=== PATIENT | female | born 1955 | race Caucasian/White ===

== ENCOUNTER → 2016-03-31 | Day surgery (SDC) | payer OTHER ==
[2016-03-23 11:14] VITALS: Ht 154.9 cm; Wt 56.8 kg
[~2016-03-31] VITALS: Ht 154.9 cm; Wt 56.8 kg
[~2016-03-31] MED LIST: CALC600T PO; CHOL20007 PO; FERR325T5 PO; LEVE500T13 PO; LIDOCAINE HCL 2% 2 ML VIAL (20MG/ML) ONE; MULT-506 PO; MYCO1TAB PO; PRLSR20 PO; PROPOFOL IV EMULSION 10 MG/ML 20 ML VIAL IV ONE; SODI650T8 PO; SULF1TAB92 PO; TACR1CAP5 PO; TACR5CAP PO; WARF10TA4 PO; WARF1TAB6 PO
--- NOTE | 2016-03-31 14:48 | Endo History and Physical ---
History & Physical Date of Service: Mar 31, 2016. Chief Complaint: cirrhosis Referring Physician: Dr. Kal francisco History of Present Illness For EGD Past Medical History Liver Disease Past Surgical History Hx Cardiac Surgery: No Hx Internal Defibrillator: No Hx Pacemaker: No Hx Abdominal Surgery: Yes (LIVER TRANSPLANT, APPY, ) Hx of Implantable Prosthesis: No Hx Post-Op Nausea and Vomiting: No Hx Cancer Surgery: No Hx Thoracic Surgery: No Hx Orthopedic: No Hx Urinary Tract Surgery: No Family History None Social History Smoking Status: Never Smoker Hx Substance Use: No Hx Alcohol Use: No Allergies Coded Allergies: Aspirin (Verified Allergy, Severe, to liver, 03/31/16) Current Medications Reported Home Medications Medications Dose Route/Sig Max Daily Dose Days Date Category Mycophenolic Acid Dr (Mycophenolate Sodium) 180 Mg Tab 1 Tab PO BID 03/23/16 Reported Prograf (Tacrolimus) 5 Mg Cap 5 Mg PO BID 03/23/16 Reported Prograf (Tacrolimus) 1 Mg Cap 1 Mg PO BID 03/23/16 Reported Sodium Bicarbonate 650 Mg Tab 1 Tab PO HS 03/23/16 Reported Ferrous Sulfate 325 Mg Tab 1 Tab PO BID 03/23/16 Reported Vitamin D3 (Cholecalciferol) 2,000 Unit Tab 2 Tab PO DAILY AFTERNOON 90 03/23/16 Reported Calcium 600 (Calcium Carbonate) 600 Mg Tab 1 Tab PO QAM 03/23/16 Reported Jantoven (Warfarin Sodium) 10 Mg Tab 10 Mg PO HS 03/23/16 Reported Jantoven (Warfarin Sodium) 1 Mg Tab 1 Mg PO HS 03/23/16 Reported Multivitamin (Multivitamins) Tab 1 Tab PO QAM 03/23/16 Reported Prilosec (Omeprazole) 20 Mg Capcr 20 Mg PO QAM 03/23/16 Reported Keppra (Levetiracetam) 500 Mg Tab 500 Mg PO BID 03/23/16 Reported Vital Signs Weight (Kilograms): 56.82 Height (Feet): 5 Height (Inches): 1 Date Time Temp Pulse Resp B/P Pulse Ox O2 Delivery O2 Flow Rate FiO2 03/31/16 14:16 36.6 65 18 120/76 99 Room Air Physical Exam General Appearance: WD/WN Respiratory/Chest: Respiratory effort: no dyspnea Cardiovascular: Heart Auscultation: RRR Abdomen: Bowel Sounds: pertinent finding (Large scar) Inspection & Palpation: soft Assessment and Plan Cirrhosis s/p transplant for EGD
--- NOTE | 2016-03-31 15:03 | Discharge Instructions ---
Endoscopy Patient Instructions Date / Procedure(s) Performed Mar 31, 2016. EGD Allergy Information Coded Allergies: Aspirin (Verified Allergy, Severe, to liver, 03/31/16) Discharge Date / Findings Mar 31, 2016. Normal EGD Medication Instructions Stopped Medication(s): continued to take Coumadin,last dose last night 2100 Restart Stopped Medication(s): resume meds Reported Home Medications Medications Dose Route/Sig Max Daily Dose Days Date Category Mycophenolic Acid Dr (Mycophenolate Sodium) 180 Mg Tab 1 Tab PO BID 03/23/16 Reported Prograf (Tacrolimus) 5 Mg Cap 5 Mg PO BID 03/23/16 Reported Prograf (Tacrolimus) 1 Mg Cap 1 Mg PO BID 03/23/16 Reported Sodium Bicarbonate 650 Mg Tab 1 Tab PO HS 03/23/16 Reported Ferrous Sulfate 325 Mg Tab 1 Tab PO BID 03/23/16 Reported Vitamin D3 (Cholecalciferol) 2,000 Unit Tab 2 Tab PO DAILY AFTERNOON 90 03/23/16 Reported Calcium 600 (Calcium Carbonate) 600 Mg Tab 1 Tab PO QAM 03/23/16 Reported Jantoven (Warfarin Sodium) 10 Mg Tab 10 Mg PO HS 03/23/16 Reported Jantoven (Warfarin Sodium) 1 Mg Tab 1 Mg PO HS 03/23/16 Reported Multivitamin (Multivitamins) Tab 1 Tab PO QAM 03/23/16 Reported Prilosec (Omeprazole) 20 Mg Capcr 20 Mg PO QAM 03/23/16 Reported Keppra (Levetiracetam) 500 Mg Tab 500 Mg PO BID 03/23/16 Reported Provider Instructions Activity Restrictions - No exercising or heavy lifting for 24 hours. - Do not drink alcohol the day of the procedure. - Do not drive a car or operate machinery until the day after the procedure. - Do not make any important decisions or sign important papers in 24 hours after the procedure. Following Day: - Return to full activity which may include returning to work/school. Diet Start your diet with liquids and light foods (jello, soup, juice, toast). Then eat your usual diet if not nauseated. Treatment For Common After Affects For mild abdominal pain, bloating, or excessive gas: - Rest - Eat lightly - Lie on right side Follow-Up Information Follow-up with Dr. Kal francisco as scheduled Anesthesia Information What You Should Know You have had a procedure that required some medicine to reduce anxiety and discomfort. This treatment is called moderate sedation. After receiving the treatment, you may be sleepy, but you will be able to breathe on your own. The effects of the treatment may last for several hours. Follow these instructions along with Activity/Diet recommendations noted above: * Do NOT do anything where dizziness or clumsiness would be dangerous. * Rest quietly at home today, then you can be up and about tomorrow. * Have a responsible person stay with you the rest of today. * You may have had an I.V. today. If so, you may take the dressing off later today. Recommendations Call your doctor if: * Trouble breathing * Continuous vomiting for more than 24 hours * Temperature above 101 degrees * Severe abdominal pain or bloating * Pain not relieved by pain medicine ordered * There is increased drainage or redness from any incision * A large amount of rectal bleeding greater than 2-3 tablespoons. (If you had a polyp/s removed or have hemorrhoids, a small amount of blood - from the rectum is to be expected.) * You have any unanswered questions or concerns. IN THE EVENT OF A SERIOUS EMERGENCY, GO TO THE NEAREST EMERGENCY ROOM Your discharge instructions were prepared by provider Beka Lo. Patient Instructions Signature Page Sulma Redd Patient (or Guardian) Signature/Date: I have read and understand the instructions given to me by my caregivers. Caregiver/RN/Doctor Signature/Date: The above-named patient and/or guardian has received patient instructions on this date. + Original Patient Signature Page (only) stays with chart. Please make copy for patient.
--- NOTE | 2016-03-31 15:07 | GI REPORT ---
Procedure Date: 03/31/2016 2:48 PM Procedure: Upper GI endoscopy Indications: Epigastric abdominal pain, Cirrhosis Medicines: Propofol total dose 130 mg IV, Lidocaine 40 mg IV Complications: No immediate complications. Estimated Blood Loss: Estimated blood loss: none. Procedure: Pre-Anesthesia Assessment: - Prior to the procedure, a History and Physical was performed, and patient medications, allergies and sensitivities were reviewed. The patient's tolerance of previous anesthesia was reviewed. - The risks and benefits of the procedure and the sedation options and risks were discussed with the patient. All questions were answered and informed consent was obtained. After obtaining informed consent, the endoscope was passed under direct vision. Throughout the procedure, the patient's blood pressure, pulse, and oxygen saturations were monitored continuously. The scope was introduced through the mouth, and advanced to the second part of duodenum. The upper GI endoscopy was accomplished without difficulty. The patient tolerated the procedure well. Findings: The examined esophagus was normal. The entire examined stomach was normal. The examined duodenum was normal. Impression: - Normal esophagus. - Normal stomach. - Normal examined duodenum. - No specimens collected. Recommendation: - Discharge patient to home (ambulatory). - Continue present medications. - Return to referring physician as previously scheduled. Beka Lo M.D. Beka oL MD 03/31/2016 3:07:05 PM This report has been signed electronically. Note Initiated On: 03/31/2016 2:48 PM I attest to the content of the Intraoperative Record and orders documented therein, exceptions below
--- NOTE | 2016-03-31 15:30 | Anesthesiology Progress Note ---
Anesthesia Post Op Note Date & Time Mar 31, 2016 at 15:30 Vital Signs Pain Intensity: 0 Vital Signs Past 12 Hours Date Time Temp Pulse Resp B/P Pulse Ox O2 Delivery O2 Flow Rate FiO2 03/31/16 15:25 64 20 118/75 100 Room Air 03/31/16 15:10 65 20 99/57 100 Mask 10 03/31/16 14:16 36.6 65 18 120/76 99 Room Air Notes Mental Status: alert / awake / arousable, participated in evaluation Pt Amnestic to Procedure: Yes Nausea / Vomiting: adequately controlled Pain: adequately controlled Airway Patency, RR, SpO2: stable & adequate BP & HR: stable & adequate Hydration State: stable & adequate Anesthetic Complications: no major complications apparent Pt doing well.
[2016-03-31 15:40] VITALS: BP 131/77; PULSE 57; O2SAT 100
== END | disposition home or self-care (01) ==
LOC: C.GI 12:15
PROVIDERS: ATTEND Internal Medicine Gastroenterology
DX: K74.60 Unspecified cirrhosis of liver (principal); Z94.4 Liver transplant status; Z90.49 Acquired absence of other specified parts of digestive tract; Z79.01 Long term (current) use of anticoagulants

== ENCOUNTER → 2016-05-23 | Outpatient (CLI) | payer OTHER ==
[~2016-05-23] MED LIST changes: -LIDOCAINE HCL 2% 2 ML VIAL (20MG/ML) ONE; -PROPOFOL IV EMULSION 10 MG/ML 20 ML VIAL IV ONE; -SULF1TAB92 PO
== END | disposition home or self-care (01) ==
LOC: C.MAMM 09:05
PROVIDERS: ATTEND Internal Medicine Geriatric Medicine
DX: Z00.00 Encounter for general adult medical examination without abnormal findings (principal); M81.0 Age-related osteoporosis without current pathological fracture

== ENCOUNTER → 2016-05-30 | Outpatient (CLI) | payer OTHER ==
[2016-05-30 13:23] LABS: INR 2.1 (0.9-1.1); PROTHROMBIN TIME (PATIENT) 23.6 SECONDS (9.0-12.0)
== END | disposition home or self-care (01) ==
LOC: C.LAB 12:01
PROVIDERS: ATTEND Internal Medicine Gastroenterology
DX: Z01.812 Encounter for preprocedural laboratory examination (principal)

== ENCOUNTER → 2016-06-02 | Day surgery (SDC) | payer OTHER ==
[2016-05-11 13:11] VITALS: Ht 154.9 cm; Wt 56.8 kg
[~2016-06-02] VITALS: Ht 154.9 cm; Wt 56.8 kg
[~2016-06-02] MED LIST changes: +LIDOCAINE HCL 2% 2 ML VIAL (20MG/ML) ONE; +MIDAZOLAM HCL 1 MG/ML 2ML VIAL ONE; +ONDANSETRON INJ 2 MG/ML 2 ML VIAL ONE; +PROPOFOL IV EMULSION 10 MG/ML 20 ML VIAL IV ONE
--- NOTE | 2016-06-02 13:27 | Endo History and Physical ---
History & Physical Date of Service: Jun 02, 2016. Chief Complaint: screening Referring Physician: Dr. Radha Ventura History of Present Illness For colonoscopy Past Medical History Liver Disease Past Surgical History Hx Cardiac Surgery: No Hx Internal Defibrillator: No Hx Pacemaker: No Hx Abdominal Surgery: Yes (LIVER TRANSPLANT, APPY, ) Hx of Implantable Prosthesis: No Hx Post-Op Nausea and Vomiting: No Hx Cancer Surgery: No Hx Thoracic Surgery: No Hx Orthopedic: No Hx Urinary Tract Surgery: No Family History None Social History Smoking Status: Never Smoker Hx Substance Use: No Hx Alcohol Use: No Allergies Coded Allergies: Aspirin (Verified Allergy, Severe, TOLD TO AVOID D/T LIVER DISEASE, ) Current Medications Reported Home Medications Medications Dose Route/Sig Max Daily Dose Days Date Category Mycophenolic Acid Dr (Mycophenolate Sodium) 180 Mg Tab 1 Tab PO BID 03/23/16 Reported Prograf (Tacrolimus) 5 Mg Cap 5 Mg PO BID 03/23/16 Reported Prograf (Tacrolimus) 1 Mg Cap 1 Mg PO BID 03/23/16 Reported Sodium Bicarbonate 650 Mg Tab 1 Tab PO HS 03/23/16 Reported Ferrous Sulfate 325 Mg Tab 1 Tab PO BID 03/23/16 Reported Vitamin D3 (Cholecalciferol) 2,000 Unit Tab 2 Tab PO DAILY AFTERNOON 90 03/23/16 Reported Calcium 600 (Calcium Carbonate) 600 Mg Tab 1 Tab PO QAM 03/23/16 Reported Jantoven (Warfarin Sodium) 10 Mg Tab 10 Mg PO HS 03/23/16 Reported Jantoven (Warfarin Sodium) 1 Mg Tab 1 Mg PO HS 03/23/16 Reported Multivitamin (Multivitamins) Tab 1 Tab PO QAM 03/23/16 Reported Prilosec (Omeprazole) 20 Mg Capcr 20 Mg PO QAM 03/23/16 Reported Keppra (Levetiracetam) 500 Mg Tab 500 Mg PO BID 03/23/16 Reported Vital Signs Weight (Kilograms): 56.82 Height (Feet): 5 Height (Inches): 1 Physical Exam General Appearance: WD/WN Respiratory/Chest: Respiratory effort: no dyspnea Cardiovascular: Heart Auscultation: RRR Abdomen: Bowel Sounds: pertinent finding (scars) Assessment and Plan for screening colonoscopy
[2016-06-02 13:41] VITALS: TEMP 36.6
--- NOTE | 2016-06-02 14:10 | Discharge Instructions ---
Endoscopy Patient Instructions Date / Procedure(s) Performed Jun 02, 2016. Colonoscopy Allergy Information Coded Allergies: Aspirin (Verified Allergy, Severe, TOLD TO AVOID D/T LIVER DISEASE, ) Discharge Date / Findings Jun 02, 2016. Normal colon Medication Instructions Restart Stopped Medication(s): resume meds Reported Home Medications Medications Dose Route/Sig Max Daily Dose Days Date Category Mycophenolic Acid Dr (Mycophenolate Sodium) 180 Mg Tab 1 Tab PO BID 03/23/16 Reported Prograf (Tacrolimus) 5 Mg Cap 5 Mg PO BID 03/23/16 Reported Prograf (Tacrolimus) 1 Mg Cap 1 Mg PO BID 03/23/16 Reported Sodium Bicarbonate 650 Mg Tab 1 Tab PO HS 03/23/16 Reported Ferrous Sulfate 325 Mg Tab 1 Tab PO BID 03/23/16 Reported Vitamin D3 (Cholecalciferol) 2,000 Unit Tab 2 Tab PO DAILY AFTERNOON 90 03/23/16 Reported Calcium 600 (Calcium Carbonate) 600 Mg Tab 1 Tab PO QAM 03/23/16 Reported Jantoven (Warfarin Sodium) 10 Mg Tab 10 Mg PO HS 03/23/16 Reported Jantoven (Warfarin Sodium) 1 Mg Tab 1 Mg PO HS 03/23/16 Reported Multivitamin (Multivitamins) Tab 1 Tab PO QAM 03/23/16 Reported Prilosec (Omeprazole) 20 Mg Capcr 20 Mg PO QAM 03/23/16 Reported Keppra (Levetiracetam) 500 Mg Tab 500 Mg PO BID 03/23/16 Reported Provider Instructions Activity Restrictions - No exercising or heavy lifting for 24 hours. - Do not drink alcohol the day of the procedure. - Do not drive a car or operate machinery until the day after the procedure. - Do not make any important decisions or sign important papers in 24 hours after the procedure. Following Day: - Return to full activity which may include returning to work/school. Diet Start your diet with liquids and light foods (jello, soup, juice, toast). Then eat your usual diet if not nauseated. Treatment For Common After Affects For mild abdominal pain, bloating, or excessive gas: - Rest - Eat lightly - Lie on right side Follow-Up Information Follow-up with as scheduled Anesthesia Information What You Should Know You have had a procedure that required some medicine to reduce anxiety and discomfort. This treatment is called moderate sedation. After receiving the treatment, you may be sleepy, but you will be able to breathe on your own. The effects of the treatment may last for several hours. Follow these instructions along with Activity/Diet recommendations noted above: * Do NOT do anything where dizziness or clumsiness would be dangerous. * Rest quietly at home today, then you can be up and about tomorrow. * Have a responsible person stay with you the rest of today. * You may have had an I.V. today. If so, you may take the dressing off later today. Recommendations Call your doctor if: * Trouble breathing * Continuous vomiting for more than 24 hours * Temperature above 101 degrees * Severe abdominal pain or bloating * Pain not relieved by pain medicine ordered * There is increased drainage or redness from any incision * A large amount of rectal bleeding greater than 2-3 tablespoons. (If you had a polyp/s removed or have hemorrhoids, a small amount of blood - from the rectum is to be expected.) * You have any unanswered questions or concerns. IN THE EVENT OF A SERIOUS EMERGENCY, GO TO THE NEAREST EMERGENCY ROOM Your discharge instructions were prepared by provider Beka Lo. Patient Instructions Signature Page Sulma Redd Patient (or Guardian) Signature/Date: I have read and understand the instructions given to me by my caregivers. Caregiver/RN/Doctor Signature/Date: The above-named patient and/or guardian has received patient instructions on this date. + Original Patient Signature Page (only) stays with chart. Please make copy for patient.
--- NOTE | 2016-06-02 14:12 | GI REPORT ---
Procedure Date: 06/02/2016 1:34 PM Procedure: Colonoscopy Indications: Screening for colorectal malignant neoplasm Medicines: Midazolam 2 mg IV, Propofol total dose 150 mg IV, Lidocaine 40 mg IV Complications: No immediate complications. Estimated Blood Loss: Estimated blood loss: none. Procedure: Pre-Anesthesia Assessment: - Prior to the procedure, a History and Physical was performed, and patient medications, allergies and sensitivities were reviewed. The patient's tolerance of previous anesthesia was reviewed. - The risks and benefits of the procedure and the sedation options and risks were discussed with the patient. All questions were answered and informed consent was obtained. After I obtained informed consent, the scope was passed under direct vision. Throughout the procedure, the patient's blood pressure, pulse, and oxygen saturations were monitored continuously. The scope was introduced through the anus and advanced to the cecum, identified by appendiceal orifice and ileocecal valve. The colonoscopy was performed without difficulty. The patient tolerated the procedure well. The quality of the bowel preparation was excellent. Findings: The entire examined colon appeared normal. Impression: - The entire examined colon is normal. - No specimens collected. Recommendation: - Discharge patient to home (ambulatory). - Continue present medications. - Repeat colonoscopy in 10 years for screening purposes. - Return to primary care physician PRN. Beka Lo M.D. Beka Lo MD 06/02/2016 2:11:45 PM This report has been signed electronically. Note Initiated On: 06/02/2016 1:34 PM I attest to the content of the Intraoperative Record and orders documented therein, exceptions below
--- NOTE | 2016-06-02 14:27 | Anesthesiology Progress Note ---
Anesthesia Post Op Note Date & Time Jun 02, 2016 at 14:26 Vital Signs Pain Intensity: 0 Vital Signs Past 12 Hours Date Time Temp Pulse Resp B/P Pulse Ox O2 Delivery O2 Flow Rate FiO2 06/02/16 14:23 70 16 99/68 99 Room Air 06/02/16 14:14 66 16 99/61 98 Room Air 06/02/16 13:41 36.6 80 16 109/74 100 Room Air Notes Mental Status: alert / awake / arousable, participated in evaluation Pt Amnestic to Procedure: Yes Nausea / Vomiting: adequately controlled Pain: adequately controlled Airway Patency, RR, SpO2: stable & adequate BP & HR: stable & adequate Hydration State: stable & adequate Anesthetic Complications: no major complications apparent
[2016-06-02 14:44] VITALS: BP 125/77; PULSE 61; O2SAT 100
== END | disposition home or self-care (01) ==
LOC: C.GI 13:18
PROVIDERS: ATTEND Internal Medicine Gastroenterology
DX: Z12.11 Encounter for screening for malignant neoplasm of colon (principal); K76.9 Liver disease, unspecified; Z90.49 Acquired absence of other specified parts of digestive tract; Z98.890 Other specified postprocedural states; Z88.5 Allergy status to narcotic agent; Z79.01 Long term (current) use of anticoagulants; Z94.4 Liver transplant status

== ENCOUNTER → 2016-11-03 | Outpatient (CLI) | payer OTHER ==
[~2016-11-03] MED LIST changes: -LIDOCAINE HCL 2% 2 ML VIAL (20MG/ML) ONE; -MIDAZOLAM HCL 1 MG/ML 2ML VIAL ONE; -ONDANSETRON INJ 2 MG/ML 2 ML VIAL ONE; -PROPOFOL IV EMULSION 10 MG/ML 20 ML VIAL IV ONE; -SODI650T8 PO
--- NOTE | 2016-11-20 09:06 | CODING QUERY MEDICAL NECESSITY ---
CQSUPPORTING DIAGNOSIS NEEDED A supporting diagnosis is required for the test/procedure performed on this patient in order for us to be reimbursed by the patient's insurance. Please provide a supporting diagnosis for the following test/procedure listed below next to the test name along with your signature. *If there is no additional diagnosis for this patient that would support the following test/procedure please document that below next to the test/procedure. Test(s)/Procedure(s) that require a supporting diagnosis: DOS 11/10/16 VITAMIN D TEST Provider Signature: Date: Thank you Claudia Morris Health Information Management Once completed, please kindly fax back to [phone] For questions please call [phone]
== END | disposition home or self-care (01) ==
LOC: C.LABBC 14:53
PROVIDERS: ATTEND Physician Assistant Medical
DX: R68.89 Other general symptoms and signs (principal); M81.0 Age-related osteoporosis without current pathological fracture

== ENCOUNTER → 2016-11-20 | Outpatient (CLI) | payer OTHER ==
[~2016-11-20] MED LIST changes: +GADAVIST IV PRN
--- NOTE | 2016-11-20 18:18 | DIAGNOSTIC IMAGING REPORT ---
MRI OF THE BRAIN WITHOUT AND WITH IV CONTRAST CLINICAL HISTORY: Forgetfulness. Headaches. COMPARISON STUDY: Head CT February 28, 2015. TECHNIQUE: Utilizing a 1.5 Dominique magnet and dedicated coil, multiplanar, multiecho imaging of the brain was performed pre and postcontrast administration. IV administration of 6 mL of Gadavist contrast was uneventful. FINDINGS: There are no areas of restricted diffusion. No acute intracranial hemorrhage, midline shift or mass effect is present. Brain volume is normal. Ventricular system is normal. The basilar cisterns are patent. There are no extra-axial collections. Flow-voids for the major intracranial vessels are present. There are multiple small white matter T2 hyperintense foci. No intracranial mass or pathologic enhancement is present. Calvarial signal is unremarkable. Orbits and sinuses are unremarkable. There is no fluid within the mastoid air cells. IMPRESSION: 1. No acute intracranial findings. 2. No intracranial mass or pathologic enhancement. 3. Scattered white matter T2 hyperintense foci which are nonspecific but likely reflect mild small vessel disease. Electronically signed by: Rodrigo Siddiqui M.D. 11/20/2016 6:16 PM Dictated Date/Time: 11/20/2016 6:12 PM
== END | disposition home or self-care (01) ==
LOC: C.MRI 16:02
PROVIDERS: ATTEND Physician Assistant Medical
DX: R41.3 Other amnesia (principal); R90.89 Other abnormal findings on diagnostic imaging of central nervous system

== ENCOUNTER → 2017-01-23 | Outpatient (CLI) | payer OTHER ==
[~2017-01-23] MED LIST changes: -GADAVIST IV PRN
--- NOTE | 2017-01-26 17:35 | EEG Procedure Note ---
EEG Procedure Note Date of Service Jan 23, 2017. Start / End Times Start Time: 12:51 PM End Time: 1:12 PM Referring Physician Adriel Nazario History This is a 61-year-old female with a reported history of seizures. EEG for further evaluation of seizure etiology. Home Medication List Scheduled Calcium Carbonate (Calcium 600), 1 TAB PO QAM Cholecalciferol (Vitamin D3), 2 TAB PO DAILY AFTERNOON Ferrous Sulfate (Ferrous Sulfate), 1 TAB PO BID Levetiracetam (Keppra), 500 MG PO BID Multivitamin (Multivitamin), 1 TAB PO QAM Mycophenolate Sodium (Mycophenolic Acid Dr), 1 TAB PO BID Omeprazole (Prilosec), 20 MG PO QAM Tacrolimus (Prograf), 1 MG PO BID Tacrolimus (Prograf), 5 MG PO BID Warfarin Sod (Jantoven), 1 MG PO HS Warfarin Sod (Jantoven), 10 MG PO HS Description This is a 21 electrode EEG with a single channel dedicated to limited EKG. The electrodes were placed in accordance with the International 10-20 system. At the start of the recording the patient was in an awake state. Background was well organized and composed of symmetric mixed alpha and beta frequencies. There was a symmetric well-formed moderate amplitude 9-10 Hz posterior dominant rhythm that was reactive to eye opening and closure. Hyperventilation was not done. Intermittent photic stimulation at various frequencies produced no abnormalities. Drowsiness was indicated by loss of muscle artifact and slowing of the background rhythm in the theta frequencies. There was no sleep transients. Interpretation This is a normal awake and drowsy routine EEG. There was no electrographic seizures or epileptiform discharges. Clinical Correlation A normal EEG does not rule out epilepsy if there is a strong clinical suspicion.
== END | disposition home or self-care (01) ==
LOC: C.NEUR 12:37
PROVIDERS: ATTEND Psychiatry & Neurology Neurology
DX: Z87.898 Personal history of other specified conditions (principal)

== ENCOUNTER → 2017-05-31 | Outpatient (CLI) | payer OTHER ==
--- NOTE | 2017-06-06 16:25 | EEG Procedure Note ---
EEG Procedure Note Date of Service Jun 06, 2017. Start / End Times Start Time: 14:00 End Time: 14:20 Referring Physician Lillian Mancini, PAC History Headaches, dizzy spells, seizure-like activity Home Medication List Scheduled Calcium Carbonate (Calcium 600), 1 TAB PO QAM Cholecalciferol (Vitamin D3), 2 TAB PO DAILY AFTERNOON Ferrous Sulfate (Ferrous Sulfate), 1 TAB PO BID Levetiracetam (Keppra), 500 MG PO BID Multivitamin (Multivitamin), 1 TAB PO QAM Mycophenolate Sodium (Mycophenolic Acid Dr), 1 TAB PO BID Omeprazole (Prilosec), 20 MG PO QAM Tacrolimus (Prograf), 1 MG PO BID Tacrolimus (Prograf), 5 MG PO BID Warfarin Sod (Jantoven), 1 MG PO HS Warfarin Sod (Jantoven), 10 MG PO HS Description This is a 21 electrode EEG with a single channel dedicated to limited EKG. The electrodes were placed in accordance with the International 10-20 system. There is a posterior dominant rhythm of 9-10 hertz which is symmetric distributed and attenuates with eye opening. There is a normal anterior to posterior organization. Photic stimulation is unremarkable. There is slowing of the background rhythm in the latter half of the study in the theta frequency range. A few vertex waves and sleep spindles are seen towards the end of the study. No epileptiform discharges are appreciated Interpretation This is a normal appearing EEG demonstrating wakefulness as well as the early stages of sleep. There is a normal background alpha rhythm. No epileptiform abnormalities are observed. Clinical Correlation A normal EEG does not completely exclude a diagnosis of epilepsy. If there is ongoing concern for seizures in this patient, would consider obtaining an ambulatory EEG.
== END | disposition home or self-care (01) ==
LOC: C.NEUR 13:19
PROVIDERS: ATTEND Physician Assistant
DX: Z94.4 Liver transplant status (principal)

== ENCOUNTER → 2017-06-25 | Outpatient (CLI) | payer OTHER ==
--- NOTE | 2017-06-25 14:33 | MAMMOGRAPHY REPORT ---
BILATERAL DIGITAL SCREENING MAMMOGRAM TOMOSYNTHESIS WITH CAD: 06/25/2017 CLINICAL HISTORY: Routine screening. Patient has no complaints. TECHNIQUE: Breast tomosynthesis in addition to standard 2D mammography was performed. Current study was also evaluated with a Computer Aided Detection (CAD) system. COMPARISON: Comparison is made to exams dated: 02/11/2016 mammogram, 02/01/2016 mammogram, 09/10/2014 mammogram, 07/30/2013 mammogram, 07/24/2012 mammogram - [facility], and 08/19/2008. BREAST COMPOSITION: There are scattered areas of fibroglandular density in both breasts. FINDINGS: There is a possible area of architectural distortion in the 12:00 to 12:30 middle to poste rior right breast, for which additional spot compression tomosynthesis views and possible ultrasound are recommended. There are diffuse benign-appearing punctate microcalcifications and a few benign rim calcifications. No other suspicious mass, architectural distortion or cluster of microcalcifications is seen. IMPRESSION: ACR BI-RADS CATEGORY 0: INCOMPLETE EVALUATION: NEED ADDITIONAL IMAGING EVALUATION The possible area of architectural distortion in the 12:00 to 12:30 right breast needs additional joseph luation. The patient will be called to schedule an appointment. Approximately 10% of breast cancers are not detected with mammography. A negative mammographic report should not delay biopsy if a clinically suggestive mass is present. Nai Khan M.D. ay/:06/25/2017 12:57:10 Powerhouse Tender: Amaya EPPS)([place]), [facility] letter sent: Addl Imaging 0 BI-RADS Code: ACR BI-RADS Category 0: Incomplete Evaluation: Need Additional Imaging Evaluation
== END | disposition home or self-care (01) ==
LOC: C.MAMM 11:16
PROVIDERS: ATTEND Internal Medicine Geriatric Medicine
DX: Z12.31 Encounter for screening mammogram for malignant neoplasm of breast (principal); N64.89 Other specified disorders of breast

== ENCOUNTER → 2017-07-04 | Outpatient (CLI) | payer OTHER ==
--- NOTE | 2017-07-04 15:25 | MAMMOGRAPHY REPORT ---
UNILATERAL RIGHT DIGITAL DIAGNOSTIC MAMMOGRAM TOMOSYNTHESIS AND TARGETED RIGHT ULTRASOUND: 07/04/2017 CLINICAL HISTORY: Callback from screening mammogram for possible right breast architectural distortio n. TECHNIQUE: Breast tomosynthesis in addition to standard 2D mammography was performed. Spot compress ion right CC and MLO 2D and tomosynthesis images were obtained. COMPARISON: Comparison is made to exams dated: 06/25/2017 mammogram, 02/11/2016 mammogram, 02/01/2016 mammogram, 09/10/2014 mammogram, 07/30/2013 mammogram, and 07/24/2012 mammogram - [facility] enter. BREAST COMPOSITION: There are scattered areas of fibroglandular density in the right breast. FINDINGS: Spot compression views demonstrate no persistent architectural distortion within the right superior breast on the MLO view. On the spot compression view there is partial effacement of the arc hitectural distortion although it completely effaces on the spot compression view with the small padd le and has the appearance of normal fibroglandular tissue. No suspicious architectural distortion, m ass, or other suspicious finding is seen on the additional images. Targeted ultrasound was performed of the right 12-1230 breast in the region of the questionable disto rtion. Graphically normal tissue is seen, without evidence of a mass or other suspicious sonographic abnormality. IMPRESSION: ACR-BI-RADS CATEGORY 3: PROBABLY BENIGN, TARGETED ULTRASOUND ACR-BI-RADS CATEGORY 3: PRO BABLY BENIGN No persistent architectural distortion seen on the additional images, without corresponding suspiciou s sonographic abnormality evident. Findings are benign and likely represent normal fibroglandular ti ssue. Recommend follow-up diagnostic tomosynthesis mammograms and possible ultrasound of the right b reast in 6 months to reevaluate. The patient has been verbally notified of the results. Approximately 10% of breast cancers are not detected with mammography. A negative mammographic report should not delay biopsy if a clinically suggestive mass is present. Farhana Downs M.D. /:07/04/2017 09:32:00 Brokerage Manager: Shauna EPPS)(M), [facility] letter sent: Follow Up Recommended 3 BI-RADS Code: ACR-BI-RADS Category 3: Probably Benign Ultrasound BI-RADS: ACR-BI-RADS Category 3: Pr obably Benign
== END | disposition home or self-care (01) ==
LOC: C.MAMM 09:02
PROVIDERS: ATTEND Internal Medicine Geriatric Medicine
DX: N64.89 Other specified disorders of breast (principal)